=== PATIENT | female | born 1995 | race Caucasian/White ===

== ENCOUNTER 2017-01-31 10:52 | Day surgery (SDC) | payer OTHER, BC ==
[~2017-01-31] VITALS: Ht 157.5 cm; Wt 57.3 kg
[2017-01-31 11:42] LABS: HEMATOCRIT 40.4 % (36.0-46.0); MCHC 32.4 G/DL (30.0-36.0); MCV 92.7 FL (83-99); MEAN PLAT.VOLUME 9.4 uM^3 (9.5-12.4); PLATELET COUNT 251 K/uL (156-360); RBC DIS.WIDTH-CV 11.9 % (11.8-14.6); RBC DIS.WIDTH-SD 40.4 % (39-53); RED BLOOD COUNT 4.36 M/uL (3.80-5.20); WHITE BLOOD COUNT 7.2 K/uL (4.1-10.2)
[2017-01-31 12:01] LABS: ADD MIUA? YES; BILIRUBIN NEGATIVE; BLOOD SMALL; COLOR YELLOW ((YELLOW)); GLUCOSE (STRIP) NEGATIVE; KETONES NEGATIVE; LEUKOCYTES NEGATIVE; NITRITE NEGATIVE; PROTEIN (STRIP) NEGATIVE; SPECIFIC GRAVITY 1.012 (1.000-1.030); UROBILINOGEN 0.2 MG/DL (0.2-1.0)
[2017-01-31 12:09] LABS: ANION GAP 9 MEQ/L (2-14); CHLORIDE 108 MEQ/L (99-109); SAMPLE HEMOLYSIS CHECK 0; SAMPLE ICTERIC CHECK 0; SAMPLE LIPEMIA CHECK 0; SODIUM 140 MEQ/L (136-147); TOTAL BILIRUBIN 0.6 MG/DL (0.0-1.0)
[2017-01-31 12:15] LABS: ALKALINE PHOSPHATASE 50 IU/L (3-129); GFR ESTIMATE (CALCULATED) > 59 mL/min/; GLUCOSE 86 mg/dL (70-99); LIPASE 20 U/L (1.0-51.0); UREA NITROGEN (BUN) 9 mg/dL (9-23)
[2017-01-31 12:16] LABS: BACTERIA RARE /HPF; EPITHELIAL CELLS RARE /HPF; MUCUS TRACE /LPF; RED BLOOD CELLS 0-5 /HPF (0-5); UCUL ADDED? NO; WHITE BLOOD CELLS 0-5 /HPF (0-5)
[2017-01-31 12:19] LABS: QUANTITATIVE HCG < 4.0 MIU/ML
[2017-02-01 07:35] VITALS: BP 108/58
[2017-02-01] MEDS ORDERED: NORCO 5/3251 TABLET PO (09:18)
[2017-02-01] MEDS ORDERED: ZOFRAN4 MG PO (09:18)
[2017-02-01 11:07] VITALS: BP 119/61
[2017-02-01 15:10] VITALS: BP 107/52
== END 2017-02-01 17:10 | disposition home or self-care (01) ==
LOC: EME 10:52 → 3EAST 18:11 → EME 18:11 → SDC 18:53 → 2SOUTH 21:40 → 3EAST 02-01 06:35
PROC: 0DTJ0ZZ Resection of Appendix, Open Approach (ICD-10-PCS; principal; 2017-01-31)
DX: K35.80 Unspecified acute appendicitis (principal); R11.0 Nausea
CPT/HCPCS: 74177; 80053; 81003; 83690; 84702; 85027; 88304; 99281; 99285; C9113; G0378; J0330; J1100; J1650; J1885; J2250; J2270; J2405; J2765; J3010; J7040; J7120

== ENCOUNTER 2017-06-11 19:23 | Emergency (ER) | payer OTHER, BC ==
[~2017-06-11] VITALS: Ht 157.5 cm; Wt 54.9 kg
[~2017-06-11 19:23] MED LIST: NORCO 5/3251 TABLET PO; ZOFRAN4 MG PO
[2017-06-11 20:32] LABS: BASOPHIL COUNT 0.1 K/uL (0-0.1); EOSINOPHIL (%) 1.7 % (0-5); EOSINOPHIL COUNT 0.1 K/uL (0-0.3); HEMATOCRIT 36.9 % (36.0-46.0); IMMATURE GRANULOCYTE (%) 0.2 % (0.0-0.7); INSTRUMENT ABS NEUTROPHIL CT 4.9 K/uL; LYMPHOCYTE COUNT 2.7 K/uL (1.0-2.8); MCH 30.3 PG (29.0-34.0); MCHC 33.3 G/DL (30.0-36.0); MCV 90.9 FL (83-99); MONOCYTE (%) 4.4 % (3-12); MONOCYTE COUNT 0.4 K/uL (0-0.8); NEUTROPHIL (%) 60.3 % (45-76); NEUTROPHIL COUNT 4.9 K/uL (1.8-6.4); PLATELET COUNT 348 K/uL (156-360); RBC DIS.WIDTH-CV 12.4 % (11.8-14.6); RBC DIS.WIDTH-SD 41.4 % (39-53); RED BLOOD COUNT 4.06 M/uL (3.80-5.20); WHITE BLOOD COUNT 8.2 K/uL (4.1-10.2)
[2017-06-11 20:40] LABS: CHLORIDE 104 mEq/L (99-109); POTASSIUM 3.9 mEq/L (3.7-5.4); SODIUM 139 mEq/L (136-147)
[2017-06-11 20:42] LABS: GLUCOSE 100 mg/dL (70-99)
[2017-06-11 20:44] LABS: ANION GAP 10 MEQ/L (2-14); TOTAL BILIRUBIN 0.3 mg/dL (0.0-1.0)
[2017-06-11 20:46] LABS: ALKALINE PHOSPHATASE 88 IU/L (3-129); GFR ESTIMATE (CALCULATED) > 59 mL/min/
[2017-06-11 20:47] LABS: UREA NITROGEN (BUN) 14 mg/dL (9-23)
[2017-06-11 21:59] VITALS: BP 111/75
== END 2017-06-11 21:59 | disposition home or self-care (01) ==
LOC: EME 19:23
PROVIDERS: Physician Assistant
DX: R10.12 Left upper quadrant pain (principal); B27.90 Infectious mononucleosis, unspecified without complication
CPT/HCPCS: 76705; 80053; 85025; 99281; 99283